=== PATIENT | male | born 1960 | race Caucasian/White ===

== ENCOUNTER 2019-07-29 11:47 | Inpatient (IN) | payer OTHER ==
[~2019-07-29] VITALS: Ht 180.3 cm; Wt 97.1 kg
--- NOTE | 2019-07-29 12:01 | NUR ---
COMPUTER TYPESETTER NOTE: EKG COMPLETED IN TRIAGE, REVIEWED BY EDMD.
--- NOTE | 2019-07-29 12:11 | NUR ---
FIRST CONTACT WITH PT. PT HAD LEFT SIDED CP X 3-4 WEEKS WORSE IN LAST FEW DAYS; NO AGGRAVATING FACTORS. HX SVT. PT DENEIS ANY CP AT THIS TIME. PT'S AOX4. RESPS EVEN AND UNLABORED. ALL MONITORS IN PLACE. 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 CALL LIGHT WITHIN REACH. AWAITING ORDERES.
[2019-07-29 12:40] LABS: BASOPHILS # (AUTO) 0.06 x10^3/uL (0-0.1); BASOPHILS % (AUTO) 1 % (0-1); EOSINOPHILS % (AUTO) 2 % (1-7); LYMPHOCYTES # (AUTO) 1.32 x10^3/uL (1-3.4); LYMPHOCYTES % (AUTO) 21 % (22-44); MD NO; MEAN CORPUSCULAR HEMOGLOBIN 31.3 pg (27.5-34.5); MEAN CORPUSCULAR HGB CONC 33.8 g/dL (33.2-36.2); MEAN CORPUSCULAR VOLUME 92.6 fL (81-97); MEAN PLATELET VOLUME 7.9 fL (7.4-10.4); MONOCYTES # (AUTO) 0.46 x10^3/uL (0.2-0.8); MONOCYTES % (AUTO) 7 % (2-9); NEUTROPHILS # (AUTO) 4.28 x10^3/uL (1.8-6.8); NEUTROPHILS % (AUTO) 69 % (42-75); PLATELET COUNT 193 x10^3/uL (130-400); RED BLOOD COUNT 5.11 x10^6/uL (4.38-5.82); RED CELL DISTRIBUTION WIDTH 12.4 % (9.4-14.8)
[2019-07-29 12:52] LABS: ALANINE AMINOTRANSFERASE 30 U/L (12-78); ANION GAP 7 mmol/L (5-15); CALCIUM 8.7 mg/dL (8.5-10.1); CHLORIDE 108 mmol/L (98-107)
[2019-07-29 12:56] LABS: ALKALINE PHOSPHATASE 77 U/L (45-117); BILIRUBIN,TOTAL 0.7 mg/dL (0.2-1.0); TOTAL PROTEIN 6.8 g/dL (6.4-8.2); TROPONIN I < 0.015 ng/mL (0.000-0.045)
--- NOTE | 2019-07-29 13:25 | NUR ---
PT RESTING IN [facility]. PT'S AOX4. RESPS EVEN AND UNLABORED. ALL MONITORS IN PLACE. CALL LIGHT WITHIN REACH.
[2019-07-29] MEDS ORDERED: FLUT1BLS INH ×2 (14:06→17:00)
[2019-07-29] MEDS ORDERED: ALBU18HF INH (14:06)
[2019-07-29] MEDS ORDERED: CETI10TA24 PO (14:07)
[2019-07-29] MEDS ORDERED: FLUT9.9S NAS (14:08)
[2019-07-29] MEDS ORDERED: ALBUTEROL SULFATE 2.5 MG/3 ML NPPB PRN (14:30)
[2019-07-29] MEDS ORDERED: BACLOFEN 10 MG TABLET PO PRN (14:30)
[2019-07-29] MEDS ORDERED: ACETAMINOPHEN 325 MG TABLET PO PRN (14:30)
[2019-07-29] MEDS ORDERED: NITROGLYCERIN 0.4 MG/SPRAY SL PRN (14:30)
[2019-07-29] MEDS ORDERED: morphine SULFATE 10 MG/ML, 1ML IVPush PRN (14:30)
[2019-07-29] MEDS ORDERED: NITROGLYCERIN 0.4 MG BOTTLE (25 TABS) SL PRN (14:30)
[2019-07-29] MEDS ORDERED: SODIUM CHLORIDE FLUSH 10ML SYR IVF PRN (14:30)
[2019-07-29] MEDS ORDERED: morphine SULFATE 10 MG/ML, 1ML IV PRN (14:30)
--- NOTE | 2019-07-29 14:30 | NUR ---
BREAK RN: ADMITTING MD CRAWFORD AT [facility] FOR EVAL. PT AO X 4. SKIN PWD. RESP EVEN AND UNLABORED. PT CURRENTLY DENIES CP. PT ON CONT BP, CARDIAC AND O2 MONITORS. CALL LIGHT WITHIN REACH.
--- NOTE | 2019-07-29 15:07 | NUR ---
REPORT GIVEN TO JOSE SIMON. ALL QUESTIONS ANSWERED.
[2019-07-29] MEDS ORDERED: LIDODERM 5% PATCH TD SCH (16:11)
[2019-07-29] MEDS ORDERED: SIMPLY SALINE INH (17:00)
[2019-07-29] MEDS ORDERED: ASPI-650 PO (17:00)
[2019-07-29] MEDS ORDERED: CETI10TA PO (17:00)
[2019-07-29 20:22] VITALS: BP 114/75
[2019-07-29 20:30] LABS: TROPONIN I < 0.015 ng/mL (0.000-0.045)
[2019-07-29] MEDS: SODIUM CHLORIDE FLUSH 10ML SYR IVF SCH (20:37)
[2019-07-29] MEDS ORDERED: CETIRIZINE 10 MG TABLET HOMEMEDPO SCH (21:30)
[2019-07-29] MEDS ORDERED: FLUTICASONE/VILANTEROL 200-25MCG/INH INH SCH (21:30)
[2019-07-29] MEDS ORDERED: FLUTICASONE PROPIONATE 50 MCG NAS SCH (22:00)
[2019-07-30 02:27] VITALS: BP 109/72
[2019-07-30 02:37] LABS: TROPONIN I < 0.015 ng/mL (0.000-0.045)
[2019-07-30 02:39] LABS: LDL/HDL RATIO 2.8 (0.5-3.0)
[2019-07-30] MEDS ORDERED: ASPIRIN 325 MG TABLET EC PO SCH (06:00)
[2019-07-30] MEDS: SODIUM CHLORIDE FLUSH 10ML SYR IVF SCH (08:13)
[2019-07-30 08:31] VITALS: BP 101/65
[2019-07-30] MEDS ORDERED: CETIRIZINE 10 MG TABLET HOMEMEDPO SCH (09:00)
[2019-07-30] MEDS ORDERED: FLUTICASONE/VILANTEROL 200-25MCG/INH INH SCH (09:00)
[2019-07-30] MEDS ORDERED: REGADENOSON 0.4 MG/5 ML SYRINGE ONE (09:09)
[2019-07-30 12:36] VITALS: BP 107/69
== END 2019-07-30 16:00 | disposition home or self-care (01) | DRG 313 ==
LOC: ED 13:59 → INTOOBSV 14:13 → EDIP 14:13 → OBSVTOIN 14:42 → 5SO 16:08 → DCLOUNGE 07-30 15:57
PROVIDERS: ADMIT Hospitalist; ATTEND Hospitalist
PROC: 5A09357 Assistance with Respiratory Ventilation, Less than 24 Consecutive Hours, Continuous Positive Airway Pressure (ICD-10-PCS; principal; 2019-07-30)
DX: R07.89 Other chest pain (principal); I49.3 Ventricular premature depolarization; G47.33 Obstructive sleep apnea (adult) (pediatric); J45.909 Unspecified asthma, uncomplicated; E78.5 Hyperlipidemia, unspecified; Z82.49 Family history of ischemic heart disease and other diseases of the circulatory system
CPT/HCPCS: 0399T; 36415; 71045; 78452; 80053; 80061; 84484; 85025; 93005; 93017; 93306; 94660; 99285; A9502; C9898; G0378; J2785

== ENCOUNTER → 2020-07-22 | Outpatient (CLI) | payer OTHER ==
[~2020-07-22] MED LIST: ALBU18HF INH; ASPI-650 PO; CETI10TA PO; CETI10TA76 PO; FLUT1BLS INH; FLUT9.9S NAS; SIMPLY SALINE INH
== END | disposition home or self-care (01) ==
LOC: CFH 07:17
PROVIDERS: ATTEND Nurse Practitioner Family
DX: I71.9 Aortic aneurysm of unspecified site, without rupture (principal)
CPT/HCPCS: 93306; 93356